=== PATIENT | male | born 1980 | race Caucasian/White ===

== ENCOUNTER 2023-06-28 13:06 | Emergency (ER) | payer OTHER ==
[2023-06-28 13:15] VITALS: BMI 31.2
[2023-06-28] MEDS ORDERED: ACETAMINOPHEN 500 MG TABLET (FP) PO ONE (14:20)
[2023-06-28] MEDS ORDERED: ACETAMINOPHEN 325 MG TABLET (FP) ONE (14:40)
[2023-06-28 18:53] VITALS: BP 129/82; PULSE 69; RESP 18; TEMP 97.9
== END 2023-06-28 18:55 | disposition home or self-care (01) ==
LOC: JER 13:06
DX: S00.93XA Contusion of unspecified part of head, initial encounter (principal); M25.511 Pain in right shoulder; M54.2 Cervicalgia; M79.601 Pain in right arm; R51.9 Headache, unspecified; W01.198A Fall on same level from slipping, tripping and stumbling with subsequent striking against other object, initial encounter; Y93.D9 Activity, other involving arts and handcrafts; Y92.009 Unspecified place in unspecified non-institutional (private) residence as the place of occurrence of the external cause
CPT/HCPCS: 70450-TC; 73030-TC-RT-FY; 73060-TC-RT-FY; 73070-TC-RT-FY; 73090-TC-RT-FY; 73130-TC-RT-FY; 99284-25